=== PATIENT | male | born 1965 | race American Indian/Alaskan Native ===

== ENCOUNTER 2019-01-05 08:16 | Emergency (ER) | payer OTHER ==
--- NOTE | 2019-01-05 08:48 | Emergency Department Report ---
ED Extremity Problem HPI - General Chief complaint: Extremity Injury, Lower Stated complaint: RT KNEE INJURY/PAIN Time Seen by Provider: 01/05/19 08:33 Source: patient Mode of arrival: Ambulatory Limitations: No Limitations - History of Present Illness Initial comments: Patient is a 53-year-old male presents to the emergency room with complaints of right knee pain that worsened yesterday. He states that his knee immobilizer slipped off and he felt a buckling sensation of the right knee and heard a popping noise. he states that he did not fall completely to the ground, he states he caught himself. pt states that he had a fall on November 09 and had a knee sprain and has been seeing Dr. Teague, orthopedic. He states he has an MRI scheduled of his knee with Dr. Teague. He has been ambulatory with his knee immobilizer on. Past medical history of diabetes and high blood pressure. denies allergies to medications. - Related Data Previous Rx's Medication Instructions Recorded Last Taken Type Ibuprofen [Motrin 600 MG tab] 600 mg PO Q8H PRN #14 tablet 01/05/19 Unknown Rx traMADol [Ultram 50 MG tab] 50 mg PO Q6HR PRN #10 tablet 01/05/19 Unknown Rx Allergies Allergy/AdvReac Type Severity Reaction Status Date / Time No Known Allergies Allergy Unverified 01/05/19 08:18 ED Review of Systems ROS: Stated complaint: RT KNEE INJURY/PAIN Other details as noted in HPI Comment: All other systems reviewed and negative ED Past Medical Hx - Past Medical History Hx Hypertension: Yes Hx Diabetes: Yes Additional medical history: HIGH CHOLESTEROL - Surgical History Past Surgical History?: Yes Additional Surgical History: 2014 TRIPLE BYPASS - Social History Smoking Status: Never Smoker Substance Use Type: None - Medications Home Medications: Home Medications Medication Instructions Recorded Confirmed Last Taken Type Ibuprofen [Motrin 600 MG tab] 600 mg PO Q8H PRN #14 tablet 01/05/19 Unknown Rx traMADol [Ultram 50 MG tab] 50 mg PO Q6HR PRN #10 tablet 01/05/19 Unknown Rx ED Physical Exam - General Limitations: No Limitations General appearance: alert, in no apparent distress - Head Head exam: Present: atraumatic, normocephalic - Eye Eye exam: Present: normal appearance - ENT ENT exam: Present: mucous membranes moist - Extremities Exam Extremities exam: Present: other (TTP over the right anterior knee, small amount of edema, no ecchymosis, no obvious joint laxity, decreased ROM of the right knee secondary to pain, 2+ distal pulses, sensation intact) - Neurological Exam Neurological exam: Present: alert, oriented X3 - Psychiatric Psychiatric exam: Present: normal affect, normal mood - Skin Skin exam: Present: warm, dry, intact ED Course Vital Signs 01/05/19 01/05/19 08:23 09:56 Temperature 97.9 F Pulse Rate 107 H 91 H Respiratory 20 18 Rate Blood Pressure 127/85 Blood Pressure 124/86 [Left] O2 Sat by Pulse 97 98 Oximetry ED Medical Decision Making - Radiology Data Radiology results: report reviewed RIGHT KNEE, 3 VIEWS INDICATION: Right knee pain. Patient fell on 11/09/2018.. COMPARISON: None. IMPRESSION: Borderline bone mineralization. The joint space is unremarkable. No evidence for fracture or bone lesion. A moderate joint effusion is suspected on the lateral view. Focal calcifications overlie the course of the quadriceps tendon suggesting tendinopathy. Please correlate with the patient. Signer Name: Karthikeyan Recio Jr, MD Signed: 01/05/2019 9:32 AM Workstation Name: [id number] Transcribed By: TTR Dictated By: KARTHIKEYAN RECIO JR, MD Electronically Authenticated By: KARTHIKEYAN RECIO JR, MD Signed Date/Time: 01/05/19 0932 - Medical Decision Making Patient is a 53-year-old male presents to the emergency room with complaints of right knee pain that worsened yesterday. He states that his knee immobilizer slipped off and he felt a buckling sensation of the right knee and heard a popping noise. he states that he did not fall completely to the ground, he states he caught himself. pt states that he had a fall on November 09 and had a knee sprain and has been seeing Dr. Teague, orthopedic. He states he has an MRI scheduled of his knee with Dr. Teague. He has been ambulatory with his knee immobilizer on. Past medical history of diabetes and high blood pressure. denies allergies to medications. on exam: TTP over the right anterior knee, small amount of edema, no ecchymosis, no obvious joint laxity, decreased ROM of the right knee secondary to pain, 2+ distal pulses, sensation intact. XR of the right knee shows: Borderline bone mineralization. The joint space is unremarkable. No evidence forfracture or bone lesion. A moderate joint effusion is suspected on the lateral view. Focal calcifications overlie the course of the quadriceps tendon suggesting tendinopathy. Please correlate with the patient. discussed XR findings with pt. advised pt to have his MRI completed as scheduled by Dr. Teague orthopedic and to follow up with Dr. Teague. discussed with pt to continue wearing his knee immobilizer. pts discomfort treated while in the ED. pt given prescription for anti-inflammatory and tramadol. advised pt to please take medication as prescribed. Do not drive or operate heavy machinery taking pain medication. Use ice for 15 minutes at a time, rest, elevation of the leg. Follow-up with vanessa Leyva in the next 2-3 days. please have your MRI as scheduled by vanessa Leyva. Return to the emergency room for any new or worsening symptoms. - Differential Diagnosis strain, sprain, fx, dislocation, tendonitis, tendon/ligament injury Critical care attestation.: If time is entered above; I have spent that time in minutes in the direct care of this critically ill patient, excluding procedure time. ED Disposition Clinical Impression: Right knee pain Qualifiers: Chronicity: acute Qualified Code(s): M25.561 - Pain in right knee Joint effusion of knee Qualifiers: Laterality: right Qualified Code(s): M25.461 - Effusion, right knee Right knee sprain Qualifiers: Encounter type: initial encounter Involved ligament of knee: unspecified ligament Qualified Code(s): S83.91XA - Sprain of unspecified site of right knee, initial encounter Disposition: TO HOME OR SELFCARE Is pt being admited?: No Does the pt Need Aspirin: No Condition: Stable Instructions: Knee Sprain (ED), Knee Effusion (ED) Additional Instructions: Please take medication as prescribed. Do not drive or operate heavy machinery taking pain medication. Use ice for 15 minutes at a time, rest, elevation of the leg. Follow-up with Dr. Teague orthopedic in the next 2-3 days. please have your MRI as scheduled by Dr. Teague orthopedic. Return to the emergency room for any new or worsening symptoms. Prescriptions: Ibuprofen [Motrin 600 MG tab] 600 mg PO Q8H PRN #14 tablet PRN Reason: Pain traMADol [Ultram 50 MG tab] 50 mg PO Q6HR PRN #10 tablet PRN Reason: Pain , Severe (7-10) Referrals: NATHAN TEAGUE MD [Staff Physician] - 2-3 Days Time of Disposition: 09:49 Print Language: UKRAINIAN
[2019-01-05] MEDS ORDERED: TORADOL PO NR (09:00)
--- NOTE | 2019-01-05 09:36 | XRay Report ---
RIGHT KNEE, 3 VIEWS INDICATION: Right knee pain. Patient fell on 11/09/2018.. COMPARISON: None. IMPRESSION: Borderline bone mineralization. The joint space is unremarkable. No evidence for fractur e or bone lesion. A moderate joint effusion is suspected on the lateral view. Focal calcifications o verlie the course of the quadriceps tendon suggesting tendinopathy. Please correlate with the patient . Signer Name: Karthikeyan Recio Jr, MD Signed: 01/05/2019 9:32 AM Workstation Name: [id number]
[2019-01-05 09:57] VITALS: BP 124/86
== END 2019-01-05 09:56 | disposition home or self-care (01) ==
LOC: ED 08:16
DX: S83.91XA Sprain of unspecified site of right knee, initial encounter (principal); M25.461 Effusion, right knee; W01.0XXA Fall on same level from slipping, tripping and stumbling without subsequent striking against object, initial encounter; Y93.89 Activity, other specified; Y92.89 Other specified places as the place of occurrence of the external cause; Y99.8 Other external cause status

== ENCOUNTER 2019-01-24 08:15 | Outpatient (CLI) | payer OTHER ==
--- NOTE | 2019-01-24 09:57 | Magnetic Resonance Report ---
MRI RIGHT KNEE WITHOUT CONTRAST INDICATION / CLINICAL INFORMATION: M25.561) PAIN IN RT. KNEE/M79.651)PAIN RT. THIGH/S76.121A)Lacerat. COMPARISON: None available. TECHNIQUE: Multiplanar, multisequence MR images were obtained. FINDINGS: ACL: No significant abnormality. PCL: No significant abnormality. DISTAL QUADRICEPS TENDON: There is complete rupture of the distal quadriceps tendon at its insertion site on the superior patella. PATELLAR TENDON: The patellar tendon is buckled secondary to the quadriceps tendon tear although it a ppears intact. No obvious abnormality. MEDIAL MENISCUS: No significant abnormality. LATERAL MENISCUS: No significant abnormality. POSTEROLATERAL CORNER: No significant abnormality. MCL: No significant abnormality. LCL: No significant abnormality. DISTAL IT BAND: No significant abnormality. PATELLOFEMORAL ALIGNMENT: The patella is slightly low lying but otherwise alignment to the distal fem ur is anatomic. No subluxation or dislocation. ARTICULAR CARTILAGE: No significant chondrosis or articular cartilage defect. JOINT SPACE: Moderate joint effusion extends to the suprapatellar bursa. Small popliteal cyst measure s up to 1 cm in greatest dimension. No intra-articular bodies. BONES: No significant bone marrow edema. No fracture. No osseous lesion. SUBCUTANEOUS SOFT TISSUES: There is anterior soft tissue swelling and edema. ADDITIONAL FINDINGS: None. IMPRESSION: Complete or near-complete rupture of the distal quadriceps tendon. Joint effusion. Signer Name: Karthikeyan Recio Jr, MD Signed: 01/24/2019 9:52 AM Workstation Name: [id number]
== END 2019-01-24 08:16 | disposition home or self-care (01) ==
LOC: MRI 08:15
PROVIDERS: ATTEND Orthopaedic Surgery
DX: S76.121A Laceration of right quadriceps muscle, fascia and tendon, initial encounter (principal); M25.561 Pain in right knee; M79.651 Pain in right thigh; X58.XXXA Exposure to other specified factors, initial encounter; Y93.89 Activity, other specified; Y92.89 Other specified places as the place of occurrence of the external cause; Y99.8 Other external cause status
CPT/HCPCS: 73721

== ENCOUNTER 2019-02-09 08:25 | Day surgery (SDC) | payer OTHER ==
[~2019-02-09 08:25] MED LIST: ANCEF/STERILE WATER 2 GM/20 ML IV NR
[2019-02-09] MEDS ORDERED: LACTATED RINGERS 1,000 ML IV SCH (09:06)
--- NOTE | 2019-02-09 09:17 | Anesthesia Consultation ---
Anesthesia Consult and Med Hx Date of service: 02/09/19 - Airway Anesthetic Teeth Evaluation: Good ROM Head & Neck: Adequate Mental/Hyoid Distance: Adequate Mallampati Class: Class III Intubation Access Assessment: Possibly Difficult - Pulmonary Exam CTA: Yes - Cardiac Exam Cardiac Exam: RRR - Pre-Operative Health Status ASA Pre-Surgery Classification: ASA3 Proposed Anesthetic Plan: General - Pulmonary Hx Smoking: Yes (quit 25yrs ago) SOB: Yes (on exertion: neg cardiac w/u at [facility] 1 month ago per patient) Hx Sleep Apnea: No (scheduled for sleep study) - Cardiovascular System Hx Hypertension: Yes (2009- OFF MEDS X 2 YRS PER MD ORDERS) Hx Coronary Artery Disease: Yes (s/p CABG 2013; normal EF and cardiac PET 1 yr ago) Hx Angina: No Hx Cardia Arrhythmia: No Hx Valvular Heart Disease: Yes (mild on TTE 1yr ago; repeat in 2019 per cardiology notes) - Central Nervous System Hx Seizures: No CVA: No Hx Psychiatric Problems: Yes (depression) - Gastrointestinal Hx Gastroesophageal Reflux Disease: No - Endocrine Hx Renal Disease: No Hx Liver Disease: No Hx Non-Insulin Dependent Diabetes: Yes Hx Thyroid Disease: No - Other Systems Hx Cancer: Yes (NON-[place] LYMPHOMA 1987 [place]= RADIATION) Hx Obesity: Yes (BMI 43) - Additional Comments Anesthesia Medical History Comments: Hx HIV.
--- NOTE | 2019-02-09 09:17 | Anesthesia Day of Surgery ---
Anesthesia Day of Surgery - Day of Surgery Patient Examined: Yes Patient H&P Reviewed: Yes Patient is NPO: Yes
[2019-02-09] MEDS ORDERED: VERSED IV NR (10:00)
[2019-02-09] MEDS ORDERED: DILAUDID ONE (10:59)
[2019-02-09] MEDS ORDERED: XYLOCAINE MPF 2% ONE (11:00)
[2019-02-09] MEDS ORDERED: DIPRIVAN 10 MG/ML IV ONE (11:00)
[2019-02-09] MEDS ORDERED: DECADRON ONE (11:48)
[2019-02-09] MEDS ORDERED: TORADOL ONE ×2 (11:48→12:36)
[2019-02-09] MEDS ORDERED: ZOFRAN ONE (11:48)
[2019-02-09] MEDS ORDERED: REGLAN ONE (11:49)
[2019-02-09] MEDS ORDERED: MORPHINE ONE (12:36)
[2019-02-09] MEDS ORDERED: MARCAINE 0.5% INFILTRATI ONE ×2 (12:36→12:44)
[2019-02-09] MEDS ORDERED: NACL 0.9% 250ML 250 ML ONE (12:36)
[2019-02-09] MEDS ORDERED: MORPHINE IM ONE (12:44)
[2019-02-09] MEDS ORDERED: TORADOL IV ONE (12:44)
[2019-02-09] MEDS ORDERED: NACL 0.9% 250ML IV ONE (12:44)
[2019-02-09] MEDS ORDERED: LACTATED RINGERS 1,000 ML ONE (12:50)
--- NOTE | 2019-02-09 12:58 | Procedure Note ---
Date of procedure: 02/09/19 Pre-op diagnosis: 2-month-old right quadriceps tendon rupture Post-op diagnosis: same Procedure: Repair ruptured right quadriceps tendon Procedure The patient was brought to the OR after being given a femoral nerve block in preoperative holding patient was placed on the OR table supine following induction and intubation using a Mac anesthesia the patient's right lower extremity was prepped and draped in the usual sterile manner. A timeout procedure was done to identify the patient and the correct operative site. The leg was exsanguinated followed by inflation of the pneumatic tourniquet to 300 mmHg a midline incision was made proximal to the superior pole of patella this is then taken down sharply to skin and subcutaneous the patella was seen the patient had no bloody return there was a fairly large Noted in the quadriceps tendon attachment onto the superior pole in addition there was abundant scar tissue noted in this area using the Bovie the scar tissue was removed from both the quadriceps tendon as well as the proximal pole of the patella with the knee in full extension the patella tendon was flexible was supple enough to be pulled down distally next the #5 Ethibond suture was used to repair the ruptured tendon the #5 was then taken through the after placing 2 parallel tunnels using a small drill bit with the knee in full extension the quadriceps tendon was sewn into place this is followed by repair of both the medial retinaculum a cocktail mixture of Toradol saline morphine and bupivacaine was injected into the soft tissues as well for postop pain management following this the wound was closed in a standard routine fashion. Dressings were applied as well as a knee immobilizer with the knee in full extension patient will be maintained in this for approximately 5 weeks. Patient was then taken to postop anesthesia and in stable condition Anesthesia: MAC, regional Surgeon: NATHAN NIEVES Vortex Operator: MAURO MADDOX Estimated blood loss: minimal Pathology: none Condition: stable Disposition: PACU
[2019-02-09] MEDS ORDERED: PERCOCET 5/325 PO PRN (13:21)
[2019-02-09] MEDS: DILAUDID IV PRN ×2 (13:29→13:49)
[2019-02-09 14:01] VITALS: BP 127/72
--- NOTE | 2019-02-09 18:37 | Post Anesthesia Evaluation ---
- Post Anesthesia Evaluation Patient Participated: Yes Airway Patent: Yes Stable Respiratory Function: Yes Nausea/Vomiting: No Temp > 96.8F: Yes Pain Manageable: Yes Adequeate Hydration: Yes Anesthesia Complications: No Block Receding Appropriately: Not Applicable Patient on Ventilator: No
== END 2019-02-09 15:08 | disposition home or self-care (01) ==
LOC: OR 08:25
PROVIDERS: ATTEND Orthopaedic Surgery
DX: S76.111A Strain of right quadriceps muscle, fascia and tendon, initial encounter (principal); G43.909 Migraine, unspecified, not intractable, without status migrainosus; I25.2 Old myocardial infarction; I25.10 Atherosclerotic heart disease of native coronary artery without angina pectoris; E78.00 Pure hypercholesterolemia, unspecified; I10 Essential (primary) hypertension; E66.9 Obesity, unspecified; E11.9 Type 2 diabetes mellitus without complications; F32.9 Major depressive disorder, single episode, unspecified; Z87.891 Personal history of nicotine dependence; Z79.82 Long term (current) use of aspirin; Z79.899 Other long term (current) drug therapy; Z95.1 Presence of aortocoronary bypass graft; Z98.890 Other specified postprocedural states; Z91.81 History of falling; Z85.89 Personal history of malignant neoplasm of other organs and systems; Z86.2 Personal history of diseases of the blood and blood-forming organs and certain disorders involving the immune mechanism; W18.39XA Other fall on same level, initial encounter; Y93.89 Activity, other specified; Y92.89 Other specified places as the place of occurrence of the external cause; Y99.8 Other external cause status
CPT/HCPCS: 27385; 64447; 82962; J0690; J1100; J1170; J1885; J2250; J2270; J2405; J2704; J2765; J7050; J7120

== ENCOUNTER 2020-04-16 06:31 | Day surgery (SDC) | payer MEDICAID, MEDICARE ==
[2020-04-16] MEDS ORDERED: SODIUM CHLORIDE 0.9% 1000 ML 1,000 ML IV SCH (07:00)
[2020-04-16] MEDS ORDERED: WATER FOR IRRIG STERILE 1,000 ML BOTTLE ONE (07:41)
--- NOTE | 2020-04-16 07:47 | Anesthesia Consultation ---
Anesthesia Consult and Med Hx Date of service: 04/16/20 - Airway Anesthetic Teeth Evaluation: Good ROM Head & Neck: Adequate Mental/Hyoid Distance: Adequate Mallampati Class: Class III Intubation Access Assessment: Possibly Difficult - Pre-Operative Health Status ASA Pre-Surgery Classification: ASA4 Proposed Anesthetic Plan: MAC - Pulmonary Hx Smoking: Yes (quit 25yrs ago) Hx Asthma: No Hx Respiratory Symptoms: Yes (Lung CA Right) SOB: No COPD: No Home Oxygen Therapy: No Hx Pneumonia: No Hx Sleep Apnea: Yes (scheduled for sleep study) - Cardiovascular System Hx Hypertension: Yes (2009- OFF MEDS X 2 YRS PER MD ORDERS) Hx Coronary Artery Disease: Yes (s/p CABG x3 vessel 2013; normal EF and cardiac PET 1 yr ago) Hx Heart Attack/AMI: Yes (PER EKG- PT STATES HE WAS UNAWARE) Hx Angina: No Hx Percutaneous Transluminal Coronary Angioplasty (PTCA): No Hx Cardia Arrhythmia: No Hx Pacemaker: No Hx Internal Defibrillator: No Hx Valvular Heart Disease: Yes (mild on TTE 1yr ago; repeat in 2019 per cardiology notes) Hx Heart Murmur: Yes Hx Peripheral Vascular Disease: No - Central Nervous System Hx Neuromuscular Disorder: No Hx Seizures: No CVA: No Hx Back Pain: Yes Hx Psychiatric Problems: Yes (depression/anexity) - Gastrointestinal Hx Ulcer: No Hx Gastroesophageal Reflux Disease: No - Endocrine Hx Renal Disease: No Hx End Stage Renal Disease: No Hx Cirrhosis: No Hx Liver Disease: No Hx Insulin Dependent Diabetes: No Hx Non-Insulin Dependent Diabetes: Yes Hx Thyroid Disease: No Hx Hypothyroidism: No Hx Hyperthyroidism: No - Hematic Hx Anemia: No Hx Sickle Cell Disease: No - Other Systems Hx Alcohol Use: Yes (occ.) Hx Substance Use: No Hx Cancer: Yes ([place] exploratory surgery 1986/Lung CA Right) Hx Obesity: Yes (BMI 43)
--- NOTE | 2020-04-16 07:49 | Anesthesia Day of Surgery ---
Anesthesia Day of Surgery - Day of Surgery Patient Examined: Yes Patient H&P Reviewed: Yes Patient is NPO: Yes Cardiac Clearance: Yes
[2020-04-16] MEDS ORDERED: LIDOCAINE MPF (2%) 20 MG/1 ML VIAL 5 ML ONE (08:01)
[2020-04-16] MEDS ORDERED: propofoL 200 MG/20 ML VIAL IV ONE (08:01)
[2020-04-16] MEDS ORDERED: SODIUM CHLORIDE 0.9% 1000 ML IV SOLN IV ONE (08:06)
--- NOTE | 2020-04-16 08:10 | Discharge Summary ---
Providers - Providers Date of Admission: 04/16/2020 Date of discharge: 04/16/20 Attending physician: SIL ROSARIO MD Primary care physician: JERMAIN MILLER MD Hospitalization Reason for admission: pre-op bariatric egd Condition: Good Procedures: EGD Hospital course: pt had an unevenful EGD with biopsy as part of pre-op work up for planned bariatric surgery. Disposition: - TO HOME OR SELFCARE Core Measure Documentation - Palliative Care Palliative Care/ Comfort Measures: Not Applicable - Core Measures Any of the following diagnoses?: none Exam - Physical Exam Narrative exam: unchanged from pre-op Plan Activity: no restrictions Diet: low carbohydrate Follow up with: JERMAIN MILLER MD [Primary Care Provider] - 7 Days
--- NOTE | 2020-04-16 08:18 | Operative Report ---
Operative Report Operative Report: DATE: 04/16/2020 SURGERY: Upper endoscopy. SURGEON: Ike Palmer M.D. PROCEDURE: 1. EGD 2. antral biopsy 3. duodenal biopsy PRE OP DX: morbid obesity, GERD POST OP DX: morbid obesity, GERD TYPE OF ANESTHESIA: MAC. ESTIMATED BLOOD LOSS: None. COMPLICATIONS: None. SPECIMENS REMOVED: antral biopsy, duodenal biopsy FINDINGS: 1. Small hiatal hernia. 2. antral gastritis and duodenitis INDICATIONS:INDICATION FOR PROCEDURE: Patient is a 55-year-old male with a long history of morbid obesity. He is planned to have a weight loss procedure and is here for preoperative planning EGD. PROCEDURE DETAILS: After consent was reviewed, patient was taken back to the operating room where patient was placed in the left lateral decubitus position and a bite block was placed in the mouth. After a time-out was called, MAC anesthesia was initiated. I then passed the endoscope into her oropharynx, into her esophagus, visualized the entire esophagus, which was all within normal limits. Z-line was noted to about 40cm from incisors. I then visualized the stomach and the first portion of the duodenum where duodenitis was observed, after which a cold biopsy was taken of the duodenal mucosa was performed A cold forceps biopsy of the antrum was taken and will be sent to pathology to evaluate for H.pylori. I then retroflexed the scope in the stomach and visualized the hiatus and I could see a small hiatal hernia. I then desufflated the stomach and removed the endoscope. Patient tolerated procedure well and was transferred to recovery room in good and stable condition.
[2020-04-16] MEDS ORDERED: SUCRALFATE 1 GM/10 ML ORAL LIQD PO SCH (09:00)
[2020-04-16 09:13] VITALS: BP 110/78
--- NOTE | 2020-04-16 13:16 | Post Anesthesia Evaluation ---
- Post Anesthesia Evaluation Patient Participated: Yes Airway Patent: Yes Stable Respiratory Function: Yes Nausea/Vomiting: No Temp > 96.8F: Yes Pain Manageable: Yes Adequeate Hydration: Yes Anesthesia Complications: No
== END 2020-04-16 06:32 | disposition home or self-care (01) ==
LOC: GIO 06:31
PROVIDERS: ATTEND Surgery
DX: K21.9 Gastro-esophageal reflux disease without esophagitis (principal); E66.01 Morbid (severe) obesity due to excess calories; K44.9 Diaphragmatic hernia without obstruction or gangrene; K29.80 Duodenitis without bleeding; K29.50 Unspecified chronic gastritis without bleeding; G43.909 Migraine, unspecified, not intractable, without status migrainosus; I25.10 Atherosclerotic heart disease of native coronary artery without angina pectoris; E78.00 Pure hypercholesterolemia, unspecified; G47.30 Sleep apnea, unspecified; E66.9 Obesity, unspecified; B96.81 Helicobacter pylori [H. pylori] as the cause of diseases classified elsewhere; M19.90 Unspecified osteoarthritis, unspecified site; F32.9 Major depressive disorder, single episode, unspecified; Z72.89 Other problems related to lifestyle; Z98.890 Other specified postprocedural states; Z79.899 Other long term (current) drug therapy; Z79.84 Long term (current) use of oral hypoglycemic drugs; Z79.82 Long term (current) use of aspirin; Z88.8 Allergy status to other drugs, medicaments and biological substances; Z95.1 Presence of aortocoronary bypass graft
CPT/HCPCS: 43239; 82962; 88305; 88342; J2704; J7030